=== PATIENT | male | born 1950 | race Caucasian/White ===

== ENCOUNTER 2018-04-30 18:55 | Emergency (ER) | payer MEDICARE, OTHER ==
[~2018-04-30] VITALS: Ht 162.6 cm; Wt 77.3 kg
[2018-04-30] MEDS ORDERED: COLC0.6T67 PO (19:04)
[2018-04-30] MEDS ORDERED: AMLO2.5T PO (19:04)
[2018-04-30] MEDS ORDERED: METO25 PO (19:04)
[2018-04-30] MEDS ORDERED: CHL25 PO (19:04)
[2018-04-30] MEDS ORDERED: METF500T6 PO (19:04)
[2018-04-30] MEDS ORDERED: LISI-661 PO (19:04)
[2018-04-30] MEDS ORDERED: ROSU20 PO (19:04)
[2018-04-30] MEDS ORDERED: ALLO300 PO (19:04)
[2018-04-30] MEDS ORDERED: NITR.4 SL (19:04)
[2018-04-30] MEDS ORDERED: ASPI-556 PO (19:04)
[2018-04-30 19:11] LABS: APPEARANCE,URINE CLEAR (CLEAR); BILIRUBIN,URINE NEGATIVE (NEGATIVE); GLUCOSE, URINE (UA) NEGATIVE (NEGATIVE); KETONES,URINE NEGATIVE (NEGATIVE); LEUKOCYTE ESTERASE ,URINE NEGATIVE (NEGATIVE); NITRATE,URINE NEGATIVE (NEGATIVE); OCCULT BLOOD,URINE MODERATE (NEGATIVE); PH,URINE 5.5 (5.0-8.0); PROTEIN,URINE SEE CONFIRM (NEGATIVE); UROBILINOGEN,URINE 0.2 mg/dL (<=1.0)
[2018-04-30 19:14] LABS: GLUCOSE,POINT OF CARE 118 MG/DL (70-110)
[2018-04-30 19:27] LABS: SULFOSALICYLIC ACID,URINE 2+ (Negative)
[2018-04-30 19:28] LABS: WBC,URINE 0-2 /HPF (0-5)
[2018-04-30 19:29] LABS: BACTERIA,URINE None Seen /HPF (None Seen); SQUAMOUS EPITHELIAL CELL,UR Few /LPF (None Seen)
[2018-04-30 20:44] VITALS: BP 115/68
[2018-04-30] MEDS ORDERED: TAMSULOSIN HCL 0.4 MG CAPSULE PO ONE (21:15)
== END 2018-04-30 21:19 | disposition home or self-care (01) ==
LOC: EMS 18:56
DX: R33.9 Retention of urine, unspecified (principal); R31.9 Hematuria, unspecified; E11.9 Type 2 diabetes mellitus without complications; I10 Essential (primary) hypertension; Z79.899 Other long term (current) drug therapy; Z95.1 Presence of aortocoronary bypass graft; Z79.82 Long term (current) use of aspirin
CPT/HCPCS: 99283